=== PATIENT | female | born 1975 | race Caucasian/White ===

== ENCOUNTER 2016-09-08 11:59 | Emergency (ER) | payer OTHER ==
[2016-09-08 12:31] VITALS: BP 131/80
--- NOTE | 2016-09-08 12:57 | UC ---
Ear Complaint HPI - HPI Summary HPI Summary: left ear pain x 7 days , no injury , pain is constant, no radiation , no cold sx no fever, no chills - History of Current Complaint Chief Complaint: UCEar Stated Complaint: LEFT EAR PAIN Time Seen by Provider: 09/08/16 12:48 Hx Obtained From: Patient Hx Last Menstrual Period: 08/30/16 ?: No Onset/Duration: Gradual Onset, Lasting Days - 7, Still Present Severity Initially: Moderate Severity Currently: Moderate Aggravating Factors: Nothing Alleviating Factors: Nothing Associated Signs/Symptoms: Positive: Foreign Body Sensation. Negative: Discharge, Hearing Loss, Trauma to Ear, Swelling @, URI Symptoms - Allergies/Home Medications Allergies/Adverse Reactions: Allergies Allergy/AdvReac Type Severity Reaction Status Date / Time Penicillins Allergy Rash Verified 09/08/16 12:31 Home Medications: Home Medications Ear Wax Softener 1 dose LEFT EAR BID PRN 09/08/16 [History] Multivitamins/Minerals TAB* [Thera M Plus TAB*] 1 tab PO DAILY 09/08/16 [ History Confirmed 09/08/16] PMH/Surg Hx/FS Hx/Imm Hx Previously Healthy: Yes - Surgical History Surgical History: Yes Surgery Procedure, Year, and Place: [facility] - Family History Known Family History: Negative: Diabetes - Social History Alcohol Use: Occasionally Substance Use Type: None Smoking Status (MU): Light Every Day Tobacco Smoker Review of Systems Constitutional: Negative Skin: Negative Eyes: Negative ENT: Ear Ache - left ear Respiratory: Negative Cardiovascular: Negative Gastrointestinal: Negative Genitourinary: Negative All Other Systems Reviewed And Are Negative: Yes Physical Exam Triage Information Reviewed: Yes Appearance: Well-Appearing, No Pain Distress, Well-Nourished Vital Signs: Initial Vital Signs Temp 99.4 F 09/08/16 12:25 Pulse 89 09/08/16 12:25 Resp 18 09/08/16 12:25 BP 131/80 09/08/16 12:25 Pulse Ox 100 09/08/16 12:25 Vital Signs Reviewed: Yes Eyes: Positive: Conjunctiva Clear ENT: Positive: Normal ENT inspection, Hearing grossly normal, Pharynx normal, TMs normal. Negative: Pharyngeal erythema, Nasal congestion, Nasal drainage, TM bulging, TM dull, TM red Neck exam: Normal Neck: Positive: Supple, Nontender, No Lymphadenopathy Respiratory: Positive: Chest non-tender, Lungs clear, Normal breath sounds Cardiovascular: Positive: RRR, No Murmur, Pulses Normal Ear Complaint Course/Dx - Differential Dx/Diagnosis Provider Diagnoses: otalgia left ear Discharge - Discharge Plan Condition: Stable Disposition: HOME Patient Education Materials: Earache (ED) Additional Instructions: on infection see, no foreign body or ear wax see ? pressure behind your ear drum may try Flonase 2 spray each nostril daily follow up with your pcp if not better in 7 days
== END 2016-09-08 13:04 | disposition home or self-care (01) ==
LOC: UCCORT 11:59
DX: H92.02 Otalgia, left ear (principal); F17.210 Nicotine dependence, cigarettes, uncomplicated; Z88.0 Allergy status to penicillin
CPT/HCPCS: 99201; G0463